=== PATIENT | female | born 1960 | race Caucasian/White ===

== ENCOUNTER 2025-07-27 13:51 | Outpatient (AMB) | payer OTHER, SELFPAY ==
--- NOTE | 2025-07-27 14:05 | MHC.OFFVIS ---
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 After that, she was noted to be emotional, easily weeping, and tremulous. This was noted by her coworkers and family. Sometime shaking appeared when she was signing something but usually at work she was able to do her job. There was no pain numbness or tingling. She also has chronic condition of shouting during sleep but not kicking. There was no change in bowel bladder pattern and she said her memory was okay. Shaking was noted in her head and sometime her whole body was shaking. She remembered that her mother used to have abnormal movement of her mouth. Her was with her and he denied any evidence of delusions or hallucinations or seizure-like episodes. [facility] Medical History (Updated 07/27/25 @ 14:22 by Kasia Flood MD) Tremor Review of Systems Narrative Constitutional:?No fever, chills, fatigue, weight loss, or night sweats. HEENT:?No headache, vision changes, hearing loss, nasal congestion, sore throat. Cardiovascular:?No chest pain, palpitations, orthopnea, PND, or leg swelling. Respiratory:?No cough, shortness of breath, wheezing, or hemoptysis. Gastrointestinal:?No nausea, vomiting, abdominal pain, diarrhea, or constipation. Genitourinary:?No dysuria, frequency, incontinence, or hematuria. Musculoskeletal:? Complain of joint pain Neurological:? Complain of tremor Psychiatric:? Complain of anxiety Endocrine:?No heat/cold intolerance, polydipsia, polyuria, or hair/skin changes. Hematologic/Lymphatic:?No easy bruising, bleeding, or lymphadenopathy. Integumentary (Skin):?No rash, lesions, itching, or color changes. Allergic/Immunologic:?No seasonal allergies, hives, or recurrent infections. Physical Exam Neuro Other: Mental Status: She is alert and awake with normal spontaneity of speech fluency comprehension and anxious affect. Cranial Nerves: CN II: Visual zhang full to confrontation, visual acuity intact. CN III, IV, : Pupils equal, round, reactive to light and accommodation. Extraocular movements are normal. CN V: Facial sensation is normal. CN VII: Facial movements symmetrical. CN VIII: Hearing intact to bedside conversation is normal. CN IX, X: Palate elevates symmetrically. CN XI: Shoulder shrug and head turn symmetrical. CN XII: Tongue midline without atrophy or fasciculations. Motor: Bulk and tone normal in all extremities. No significant muscle weakness in arms and legs. No drift. Reflexes: Deep tendon reflexes 2+ and symmetric. Plantar response down-going bilaterally. Coordination: [id number]-[id number]-mdfy with mild bilateral tremor Gait and Station: No obvious gait abnormality. No ataxia or instability. Extrapyramidal: Mild generalized tremor. Speech: Normal; no dysarthria or tremor. 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 She was here with complaints of shaking or tremor. Her examination revealed mild generalized tremor including her speech and emotional affect. She was advised to completely stopped drinking alcohol and have an MRI of brain done for review. Treatment of this type of syndrome, which could be multifactorial including contribution from chronic alcohol use, is symptomatic. Orders: Orders MR head/brain wo con Today F68.8 - 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, R25.1 - Tremor, unspecified Coding Level of Care Code New Pt Level 4 (45338) Diagnoses Tremor R25.1 Change in personality F68.8
== END 2025-07-27 14:26 | disposition home or self-care (01) ==
LOC: HO.HSM 13:51
PROVIDERS: PCP Internal Medicine; Visit Provider Psychiatry & Neurology Neurology
DX: R25.1 Tremor, unspecified (principal); F68.8 Other specified disorders of adult personality and behavior
CPT/HCPCS: 99204

== ENCOUNTER 2025-08-09 12:42 | Outpatient (AMB) | payer OTHER, SELFPAY ==
--- OUTSIDE RECORDS SUMMARY | 2025-08-09 09:00 | XMS_ITS | Encounter Summary ---
Author Organization [facility] Address [address] [place] [address] Care Team Providers Care R&D Engineer Name Role Phone Tita Hernandez MD Primary Care Provider [phone] Reason for Referral * Imaging (Routine) - Pending Review Specialty Diagnoses / Procedures Referred By Romulo shukla Referred To Contact Radiology Diagnoses Encounter for screening mammogram for malignant neoplasm of breast Procedures MG Mammo Digital Screening w Sudhakar bilat Elis Leyva DO [address] [place], [place] Phone: tel: fax: [address] [address] Phone: tel: Referral ID Status Reason Start Date Expiration Date V isits Requested Visits Authorized [id number] Pending Review 08/09/2025 08/09/2026 1 1 Reason for Visit * Reason Comments Gynecologic Exam * Consultation (Routine) - Authorized Specialty Diagnoses / Procedures Referred By Romulo shukla Referred To Contact Obstetrics and Gynecology Diagnoses Routine general medical examination at a health care facility Giancarlo Javier MD Phone: tel: fax: Elis Leyva DO [address] [place], [place] Phone: tel: fax: Referral ID Status Reason Start Date Expiration Date Visits Requested Visits Authorized [id number] Authorized Specialty Services Required 04/28/2025 04/28/2026 1 1 Encounter Details Date Type Department Care Team (Late st Contact Info) Description 08/09/2025 9:00 AM EST Office Visit Obstetrics and Gynecology - [place] [address] [place] [address], [place] [phone] Elis Leyva DO [address] [place], [place] Encounter for annual routine gynecological examination (Primary Dx); Screening for cervical cancer; ASCUS with positive high risk HPV cervical; Encounter for screening mammogram for malignant neoplasm of breast Social History Tobacco Use Types Packs/Day Years Used Date Smoking Tobacco: Light Smoker Cigarettes 0.3 51.1 Started: 1973 Smokeless Tobacco: Never Tobacco Cessation:Ready to Q uit: Not Asked; Counseling Given: Not Answered Alcohol Use Standard Drinks/Week Comments Yes 14 (1 standard drink = 0.6 oz pu re alcohol) Interpersonal Safety Answer Date Record ed Physical Abuse Unrecognized value 05/14/2025 Verbal Abuse Unrecognized value 05/14/2025 Comments No Sex and Gender Information Value Date Recorded Sex Assigned at Female 01/18/2025 8:31 AM EDT Legal Sex Female 8:40 PM EST Gender Identity Female 01/18/2025 8:31 AM EDT Sexual Orientation Straight 01/18/2025 8: 31 AM EDT documented as of this encounter Last Filed Vital Signs Vital Sign Reading Time Taken Comments Blood Pressure 120/74 08/09/2025 9:09 AM EST Pulse 89 08/09/2025 9:09 AM EST Temperature - - Respiratory Rate - - Oxygen Saturation - - Inhaled Oxygen Concentration - - Weight 63.9 kg (140 lb 12.8 oz) 08/09/2025 9:09 AM EST Height - - Body Mass Index 24.94 05/14/2025 10:15 AM EDT documented in this encounter Progress Notes * Elis Leyva DO - 08/09/2025 9:00 AM EST IDENTIFIER:Eugenie Aldana is a 65 y.o. . HPI: Eugenie has been in state of Good health since her last exam. No LMP recorded. Patient is postmenopausal.. She reports absent menses due to menopause. She has no concerns. 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 ENDOCRINE: No cold or heat intolerance NEURO: No persistent headache, syncope, seizures, weakness or numbness PAST MEDICAL HISTORY: Problem List[1] PAST SURGICAL HISTORY: Surgical History[2] PAST LODGING HOUSE KEEPER HX: No LMP recorded. Patient is postmenopausal. Last Pap Smear: 2023 nml cytology +HPV 16 Last Mammogram: 10/2024 - nml POBHX: OB History Para Term AB Living 1 1 1 0 0 1 SAB IAB Ectopic Multiple Live Births 0 0 0 1 # Outcome Date GA Lbr Tommie/2nd Weight Sex Type Anes PTL Lv 1 Term 07/12/90 Vag-Spont GLADYS SOCIAL HISTORY: Social History Tobacco Use Smoking status: Light Smoker Current packs/day: 0.25 Average packs/day: 0.3 packs/day for 51.1 years (12.8 ttl pk-yrs) Types: Cigarettes Start date: 1974 Smokeless tobacco: Never Substance Use Topics Alcohol use: Yes Alcohol/week: 14.0 standard drinks of alcohol Types: 14 Standard drinks or equivalent per week FAMILY HISTORY: Family History[3] ACTIVE MEDICATIONS: Medications Taking[4] Contraception: NA ALLERGIES: Current Allergies[5] The patient's medical, surgical, 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 Her medications and allergies were also reviewed. PHYSICAL EXAM: Visit Vitals BP 120/74 Pulse 89 Wt 63.9 kg (140 lb 12.8 oz) BMI 24.94 kg/m?? OB Status Postmenopausal Smoking Status Light Smoker BSA 1.67 m?? APPEARANCE: Alert and in no acute distress BREAST (FEMALE): Symmetrical, normal consistency without masses, adenopathy or tenderness LYMPH NODES: grossly normal ABDOMEN: soft, non-tender, without organomegaly or palpable masses A bivalve speculum was used for a portion of the following exam: PELVIC EXAM: exam chaperoned by nurse, external genitalia normal, vaginal mucosa normal with atrophy, normal cervix without lesions, bimanual nontender with no appreciable masses EXTREMITIES: Extremities warm and well perfused without clubbing, cyanosis, or edema NEURO: Awake, alert and oriented x 3 SKIN: Skin color, texture, turgor normal. No rashes or lesions. IMPRESSION: 1. Encounter for annual routine gynecological examination 2. Screening for cervical cancer PLAN: During the visit, the following areas of concern were addressed: Healthy Diet, Regular Exercise, Importance of Adequate Vitamin D and Calcium Intake for Bone Health, Breast Cancer Screening Guidelines Reviewed, Cervical Cancer Screening Guidelines Reviewed, and Colon Cancer Screening Guidelines Reviewed Labs ordered/performed: Pap Smear Imaging ordered/performed: None Elis Leyva DO [1] Patient Active Problem List Diagnosis Adhesive capsulitis Anxiety ASCUS with positive high risk HPV cervical Bloody discharge from left nipple Decreased appetite Facet arthropathy, cervical Hypertension Lumbar spondylolysis Lung nodules Mass of thigh Polymyalgia rheumatica (CMS/HCC V24) PSVT (paroxysmal supraventricular tachycardia) (CMS/HCC V24) Reflux esophagitis Resting tremor Spondylolisthesis of lumbar region Tubular adenoma of colon Vision changes Vitamin D deficiency Wheezing Hypercholesterolemia [2] Past Surgical History: Procedure Laterality Date BREAST BIOPSY PROCEDURE: BX BREAST; PERC NEEDLE CORE W/IMAG GUID; COMMENT: bx on lt & rt-benign BREAST LUMPECTOMY PROCEDURE: ---- BREAST LUMP BIOPSY ----; COMMENT: benign breast mass x2 in past BREAST SURGERY Left 02/2014 PROCEDURE: [place] UNLISTED PROCEDURE BREAST; COMMENT: ductagram than surgrey BREAST SURGERY Right PROCEDURE: [place] UNLISTED PROCEDURE BREAST; COMMENT: cyst removed COLONOSCOPY 11/12/2011 PROCEDURE: HISTORICAL COLONOSCOPY; COMMENT: 5mm tubular adenoma of the cecum. COLONOSCOPY 07/06/2016 PROCEDURE: HISTORICAL COLONOSCOPY; COMMENT: 5 mm cecal polyp: serrated adenoma. MASS EXCISION 10/2014 PROCEDURE: HISTORICAL EXCISION OF MASS; COMMENT: LLE mass (intramuscular lipoma) SHOULDER SURGERY 06/16/2018 PROCEDURE: HISTORICAL SHOULDER SURGERY; COMMENT: right shoulder arthroscopy TONSILLECTOMY ADENOIDECTOMY, BILATERAL MYRINGOTOMY AND TUBES PROCEDURE: [place] TONSILLECTOMY & ADENOIDECTOMY <AGE 13 UPPER GASTROINTESTINAL ENDOSCOPY 05/04/2016 PROCEDURE: [place] UPPER GI ENDOSCOPY PERFORMED; COMMENT: Moderate erosive esophagitis while on treatment with famotidine. BX: esophagitis. [3] Family History Problem Relation Name Age of Onset Hypertension Father Other (Other: PMR) Father Hypertension Mother Hypertension Brother Hypertension Paternal Grandfather CAD Hypertension Paternal Grandmother CAD Hypertension Maternal Grandfather CAD Hypertension Maternal Grandmother CAD Ovarian cancer Aunt Colon cancer Neg Hx Breast cancer Neg Hx [4] Outpatient Medications Marked as Taking for the 08/09/25 encounter (Office Visit) with Elis Leyva, DO Medication Sig Dispense Refill albuterol HFA (PROAIR HFA ; PROVENTIL HFA ; VENTOLIN HFA) 90 mcg/actuation inhaler INHALE 2 PUFFS BY MOUTH EVERY 4 (FOUR) HOURS IF NEEDED FOR WHEEZING OR SHORTNESS OF BREATH. 6.7 each 1 atorvastatin (LIPITOR) 10 mg tablet Take 1 tablet (10 mg total) by mouth 1 (one) time each day. 90 tablet 0 cholecalciferol (VITAMIN D-3) 50 mcg (2,000 unit) tablet Take 1 tablet (2,000 Units total) by mouthevery other day. 45 tablet 3 clobetasoL (TEMOVATE) 0.05 % cream Apply small amount BID x 2- 3 weeks then stop for 1 week and repeat if necessary. estradioL (ESTRACE) 0.01 % (0.1 mg/gram) vaginal cream Pea sized amount vaginally twice a week. FLUoxetine (PROzac) 20 mg capsule TAKE 2 CAPSULES (40 MG TOTAL) BY MOUTH EVERY DAY 180 capsule 1 hydroCHLOROthiazide (MICROZIDE) 12.5 mg capsule TAKE 1 CAPSULE BY MOUTH 1 TIME EACH DAY. 90 capsule1 lisinopriL (PRINIVIL,ZESTRIL) 20 mg tablet Take 1 tablet (20 mg total) by mouth 1 (one) time each day. 90 each 3 LORazepam (ATIVAN) 0.5 mg tablet TAKE 2 TABLETS BY MOUTH 1 (ONE) TIME EACH DAY IF NEEDED FOR ANXIETY FOR UP TO 28 DAYS. MAX DAILY AMOUNT: 1 MG 56 tablet 0 mometasone (ELOCON) 0.1 % ointment APPLY HALF A FINGERTIP AMOUNT TO THE VULVA NIGHTLY X4 WEEKS THENTWICE WEEKLY THEREAFTER 15 g 3 omeprazole (PriLOSEC) [address] capsule TAKE 1 CAPSULE BY MOUTH EVERY DAY 90 capsule 1 umeclidinium-vilanteroL (Anoro Ellipta) 62.5-25 mcg/actuation inhaler Inhale 1 puff by mouth 1 (one) time each day. 1 each 2 [5] Allergies Allergen Reactions Hydrocodone-Acetaminophen Itching Epinephrine Other Paroxysmal SVT documented in this encounter Plan of Treatment Upcoming Encounters Date Type Department Care Team (Late st Contact Info) Description 10/01/2025 9:20 AM EST Consult Endocrinology - [place] [address] [place] [address] Ambrosio Betancourt MD [address] [place] [address] Pending Results Name Type Priority Associated Diagnoses Date /Time Pap smear Pathology and Cytology Routine Screening for cervical cancer 08/09/2025 2:39 PM EST Scheduled Orders Name Type Priority Associated Diagnoses Orde r Schedule MG Mammo Digital Screening w Sudhakar bilat Imaging Routine Encounter for screening mammogram for malignant neoplasm of breast Expected: 10/18/2025, Expires: 08/09/2026 documented as of this encounter Visit Diagnoses Diagnosis Encounter for annual routine gynecological examination- Primary Screening for cervical cancer Screening for malignant neoplasm of the cervix ASCUS with positive high risk HPV cervical Encounter for screening mammogram for malignant neoplasm of breast documented in this encounter Orders Outpatient Referral Count Last Ordered Date Fir st Ordered Date AMB REFERRAL TO OB-LODGING HOUSE KEEPER 1 08/09/2025 documented in this encounter Care Teams R&D Engineer Relationship Specialty Start Date End Date Tita Hernandez MD [address] [place] [address] PCP - General Internal Medicine 06/02/25 documented as of this encounter
--- NOTE | 2025-08-09 12:58 | A.OFFVIS_ITS ---
Intake Visit Reasons: after MRI HPI Comments Details: 65 years old woman with chronic anxiety and depression and moderate alcohol drinking became more stressed about a year ago and her parents . She was here with complaints of shaking or tremor. Her examination revealed mild generalized tremor including her speech and emotional affect. She was advised to completely stopped drinking alcohol and have an MRI of brain done for review. She is presenting for a follow-up visit to review brain scan results. The patient reports experiencing a little bit of shaking and unsteadiness. The brain MRI findings were reviewed and found to be normal and age-appropriate. A general discussion was held regarding alcohol-induced brain problems, noting that nearly half of the effects can be reversed after one year of abstinence. [facility] Medical History (Updated 08/09/25 @ 13:08 by Kasia Flood MD) Tremor Review of Systems Narrative - Neurological: Reports a little bit of shaking and unsteadiness. - Psychiatric: Reports occasional anxiety. Physical Exam Neuro Other: Mental Status: Alert and oriented to person, place, and time. Normal attention. Normal spontaneous speech, fluency, and comprehension. Cranial Nerves: CN II: Visual zhang full to confrontation, visual acuity intact. CN III, IV, : Pupils equal, round, reactive to light and accommodation. Extraocular movements are normal. CN V: Facial sensation is normal. CN VII: Facial movements symmetrical. CN VIII: Hearing intact to bedside conversation is normal. CN IX, X: Palate elevates symmetrically. CN XI: Shoulder shrug and head turn symmetrical. CN XII: Tongue midline without atrophy or fasciculations. Extrapyramidal: Full facial expressions and blinking. No rigidity. Movements are appropriate with no tremor or abnormality. Speech: Normal; no dysarthria or tremor. 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 We discussed the symptoms of mild shaking and unsteadiness, and I reassured the patient that this is not related to Parkinson's disease. I advised the patient to ignore these symptoms, which are likely secondary to anxiety. I explained that while medication is an option for such symptoms, I do not recommend it, and the patient agreed. We discussed general brain health, including the potential for recovery from alcohol-induced damage and the importance of proactive care. I informed the patient that no follow-up appointment is necessary. 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
--- OUTSIDE RECORDS SUMMARY | 2025-08-09 16:20 | XMS_ITS | Encounter Summary ---
Author Organization [facility] Address [address] [place] [address] Care Team Providers Care Associate Professor Of Surgery Name Role Phone Tita Hernandez MD Primary Care Provider [phone] Encounter Details Date Type Department Care Team ([facility] st Contact Info) Description 06/14/2025 Results Follow-Up Gastroenterology - [place] [address] [facility] [address] [place] [phone] Ridge Richards MD [address] [place] [address] Social History Tobacco Use Types Packs/Day Years Used Date Smoking Tobacco: Light Smoker Cigarettes 0.3 51.1 Started: 1973 Smokeless Tobacco: Never Alcohol Use Standard Drinks/Week Comments Yes 14 [...] AM EDT documented as of this encounter Progress Notes * Ridge Richards MD - 06/14/2025 8:34 PM EDT The polyp(s) that were removed during your colonoscopy were precancerous, but benign. Fortunately, we removed them and therefore, they will not cause any more problems in the future. Based on the number, the size, and the features of the polyp(s) removed, I recommend a follow-up colonoscopy in 3 years. Before, the three years are due, we will send you a reminder in the mail asking you to contact our office to have the colonoscopy scheduled. I would like to personally thank you for allowing us to take care of you. Please don't hesitate to call us for any questions or concerns. Regards, Malaika Richards MD Board Certified Gastroenterology and Internal Medicine Transplant Hepatology [facility] documented in this encounter Plan of Treatment Upcoming Encounters Date Type Department Care Team (Late st Contact Info) Description 10/01/2025 9:20 AM EST Consult Endocrinology - [place] [address], [place] [phone] Ambrosio Betancourt MD [address] [place], [place] documented as of this encounter Visit Diagnoses Not on filedocumented in this encounter Care Teams Associate Professor Of Surgery Relationship Specialty Start Date End Date Tita Hernandez MD [address] [place] [address] PCP - General Internal Medicine 06/02/25 documented as of this encounter
--- OUTSIDE RECORDS SUMMARY | 2025-08-09 16:20 | XMS_ITS ---
Author Name [facility] Organization Unknown Care Team Organization Name Specialty Phone Email Start Date End Da te [facility] Tremaine Garibay Primary Care 05/16/2023 04/27/20 [facility] Gina Porter MINIATURE SET CONSTRUCTOR Primary Care 01/14/2023 04/27/2024 [facility] NULL Primary Care 07/17/2022 04/27/2024
--- OUTSIDE RECORDS SUMMARY | 2025-08-09 16:20 | XMS_ITS | Clinical Summary ---
Author Organization [facility] Address [address] [place] [address] Care Team Providers Care Stripper And Taper Name Role Phone Giancarlo Javier MD Primary Care Provider [phone] Allergies Active Allergy Reactions Criticality Noted Date Comments Hydrocodone-Acetaminophen 05/09/2018 Medications Medication Sig Dispensed Refills Start Date End Date Status FLUoxetine (PROZAC) 20 MG capsule Take 20 mg by mouth 2 (two) times a day. 1 02/17/2018 Active LORazepam (ATIVAN) 0.5 MG tablet Take 1 mg by mouth daily. 0 03/21/2018 Active omeprazole (PRILOSEC) 20 MG capsule Take 20 mg by mouth daily. 1 02/04/2018 Active lisinopril (PRINIVIL,ZESTRIL) tablet 10 mg Take 10 mg by mouth daily. 0 Active PROAIR HFA 108 (90 Base) MCG/ACT inhaler INHALE 2 PUFFS INTO THE LUNGS EVERY 6 HOURS NEEDED FOR COUGH OR WHEEZING. 5 08/19/2018 Active ANORO ELLIPTA 62.5-25 MCG/INH AEPB INHALE 1PUFF INTO THE LUNGS DAILY 5 08/19/2018 Active nicotine (NICODERM CQ) 21 MG/24HR Place 1 patch onto the skin. 0 04/11/2018 Active predniSONE (DELTASONE) 5 mg tablet Take by mouth. 0 Active Active Problems Problem Noted Date Diagnosed Date Acute pain of right shoulder 08/26/2018 Postoperative visit 07/03/2018 Family History Medical History Relation Name Comments Heart disease Father Hypertension Father Hypertension Mother Relation Name Status Comments Father Mother Social History Tobacco Use Types Packs/Day Years Used Date Smoking Tobacco: Never Assessed Sex and Gender Information Value Date Recorded Sex Assigned at Not on file Gender Identity Not on file Sexual Orientation Not on file Last Filed Vital Signs Vital Sign Reading Time Taken Comments Blood Pressure - - Pulse - - Temperature - - Respiratory Rate - - Oxygen Saturation - - Inhaled Oxygen Concentration - - Weight 68.9 kg (152 lb) 05/04/2019 12:43 PM EDT Height 160 cm (5' 3 ) 05/04/2019 12:43 PM EDT Body Mass Index 26.93 05/04/2019 12:43 PM EDT Plan of Treatment Health Maintenance Due Date Last Done Comments Hepatitis C Screening 1961 COVID-19 Vaccine (#1) 1961 Depression Screening 1973 BMI Counseling 1979 Preventative Health Evaluation 1979 Cervical Cancer Screening (Pap Smear) 1982 Colon Cancer Screening (Colonoscopy) 2006 Breast Cancer Screening (Mammogram) 2011 Shingrix-Zoster Vaccine (1 of 2) 2011 Pneumococcal Vaccine (2 of 2 - PCV) 11/11/2018 11/11/2017 Pneumococcal Vaccine (2 of 2 - PCV) 11/11/2018 11/11/2017 DTap / Tdap / Td (2 - Td or Tdap) 01/23/2023 01/23/2013 Influenza Vaccine (#1) 2025 9, 06/05/2018, 06/13/2017, Additional history exists RSV Adult > 60+ Yrs or (1 - 1-dose 75+ series) 2036 Hepatitis B Vaccines Aged Out No long er eligible based on patient's age to complete this topic RSV Ped < 20 months Aged Out No longe r eligible based on patient's age to complete this topic Care Teams Stripper And Taper Relationship Specialty Start Date End Date Giancarlo Javier MD [address] [place] [address] PCP - General Internal Medicine 04/11/18
--- OUTSIDE RECORDS SUMMARY | 2025-08-09 16:20 | XMS_ITS | Clinical Summary ---
Author Organization [place] [address] Ashley jorgensen [facility] Building Address [address], [place] Phone Care Team Providers Care Public Bath Attendant Name Role Phone Tita Hernandez MD Primary Care Provider Allergies Active Allergy Reactions Criticality Noted Date Comments Epinephrine Other 03/09/2021 Paroxysmal SVT Hydrocodone-Acetaminophen Itching High 02/20/2012 Medications clobetasoL (TEMOVATE) 0.05 % cream Apply small amount BID x 2- 3 weeks then stop for 1 week and repeat if necessary. 12/19/19 23 Active estradioL (ESTRACE) 0.01 % (0.1 mg/gram) vaginal cream Pea sized amount vaginally twice a week. 02/26/20 24 Active albuterol HFA (PROAIR HFA ; PROVENTIL HFA ; VENTOLIN HFA) 90 mcg/actuation inhaler INHALE 2 PUFFS BY MOUTH EVERY 4 (FOUR) HOURS IF NEEDED FOR WHEEZING OR SHORTNESS OF BREATH. 6.7 each 1 01/01/20 25 Active umeclidinium-vi lanteroL (Anoro Ellipta) 62.5-25 mcg/actuation inhaler Inhale 1 puff by mouth 1 (one) time each day. 1 each 2 02/03/20 25 Active FLUoxetine (PROzac) 20 mg capsule TAKE 2 CAPSULES (40 MG TOTAL) BY MOUTH EVERY DAY 180 capsule 1 02/24/20 25 Active hydroCHLOROthia zide (MICROZIDE) 12.5 mg capsule TAKE 1 CAPSULE BY MOUTH 1 TIME EACH DAY. 90 capsule 1 04/12/20 25 Active cholecalciferol (VITAMIN D-3) 50 mcg (2,000 unit) tablet Take 1 tablet (2,000 Units total) by mouth every other day. 45 tablet 3 04/27/20 25 Active LORazepam (ATIVAN) 0.5 mg tablet TAKE 2 TABLETS BY MOUTH 1 (ONE) TIME EACH DAY IF NEEDED FOR ANXIETY FOR UP TO 28 DAYS. MAX DAILY AMOUNT: 1 MG 56 tablet 05/05/20 25 Active lisinopriL (PRINIVIL,ZESTR IL) 20 mg tabletIndicatio ns:Hypertension , unspecified type Take 1 tablet (20 mg total) by mouth 1 (one) time each day. 90 each 3 05/12/20 25 026 Active mometasone (ELOCON) 0.1 % ointment APPLY HALF A FINGERTIP AMOUNT TO THE VULVA NIGHTLY X4 WEEKS THEN TWICE WEEKLY THEREAFTER 15 g 3 05/28/20 25 Active omeprazole (PriLOSEC) [address] capsule TAKE 1 CAPSULE BY MOUTH EVERY DAY 90 capsule 1 06/02/20 25 Active atorvastatin (LIPITOR) 10 mg tablet Take 1 tablet (10 mg total) by mouth 1 (one) time each day. 90 tablet 07/14/20 25 Active atorvastatin (LIPITOR) 10 mg tablet TAKE 1 TABLET BY MOUTH EVERY DAY 90 tablet 1 12/02/19 25 025 Discontinued Active Problems Problem Noted Date Diagnosed Date Hypercholesterolemia 02/02/2025 Assessment & Plan (02/02/2025 3:30 PM EDT): Follow low-cholesterol diet. Continue atorvastatin. Lumbar spondylolysis 01/11/2023 Spondylolisthesis of lumbar region 01/11/2023 Overview (07/20/2024): Last Assessment & Plan: Patient describes significant constant low back pain, left leg numbness and when walking left posterior leg pain. She notes weakness lifting the left foot, cannot lift the toes. She states both legs feel heavy. Otherwise denies right leg symptoms. This started about 6 weeks ago after she had a fall when she tripped on the dog and landed into a table, had significant bruising on the back and buttock. She really does not report having back issues prior to the fall. She states prior to this fall she had infrequent back pain that was generally mild, about 10 years ago she had physical therapy and a cortisone injection that helped her low back pain at that time. She denies bowel bladder incontinence. She tried a prednisone taper 2 weeks ago without improvement. Patient had MRI lumbar spine 01/03/2023 at [facility] that shows grade 2 spondylolisthesis L5-S1, bilateral neuroforaminal stenosis, pars defects noted at this level. I compared the MRI to prior studies 2019 and 2012, overall stable since 2019, slightly progressed since 2012. I reviewed her current MRI images on the computer in detail with the patient and her . Ms. Erazo will go for lumbar spine flexion-extension x-rays for her L5-S1 spondylolisthesis, pars defects, check for instability. I will review her MRI and x-rays with Dr. Lyons and call patient with an update. We had a discussion regarding smoking cessation, she would have to be nicotine free if Dr. Lyons recommends fusion surgery. She states she did quit for a short time many years ago. All questions answered on today's visit. She will call with any concerns or questions. PSVT (paroxysmal supraventri cular tachycardia) ([facility] V24) 05/08/2021 Overview (07/20/2024): Last Assessment & Plan: Sarika had a single occurrence of supraventricular tachycardia. Given the clinical characteristics this could be either an atrial tachycardia or AV papito reentry tachycardia. I reemphasized that the first step if the tachycardia recurs would be physical maneuvers which include Valsalva and drinking a glass of water. She can also keep metoprolol 25 mg to be taken for sustained palpitations lasting 5 minutes. If this is a succeed in terminating the tachycardia a second dose can be taken after 15 minutes this and she would need to be evaluated emergency department most likely. Her baseline EKG and echocardiogram are normal. Given that this episode occurred in isolation,, I do not believe she needs routine clinical follow-up with cardiology. I am happy to see her on an as-needed basis. Assessment & Plan (11/18/2024 6:17 PM EDT): She uses metoprolol only as needed. Stable now. Tubular adenoma of colon 05/19/2020 Overview (07/20/2024): 3 removed 05/12/2020. Repeat 5 years Assessment & Plan (02/02/2025 3:30 PM EDT): Referral to special weapons and tactics officer placed to schedule her for screening colonoscopy for history of colon polyps. Orders: Ambulatory referral to Gastroenterology; Future Adhesive capsulitis 05/12/2018 Overview (07/20/2024): Rheum (05/09/18): seen by Dr Cristina. Pt has failed non-operative treatment. Discussed surgical options and patient agreed. Facet arthropathy, cervical 03/26/2018 Vitamin D deficiency 10/09/2017 Assessment & Plan (02/02/2025 3:30 PM EDT): I changed her vitamin D prescription to vitamin D 2000 units every other day. Will monitor vitamin D levels. Orders: Vitamin D 25 hydroxy; Future Vision changes 08/26/2017 Decreased appetite 07/24/2017 Polymyalgia rheumatica (CMS/HCC V24) 07/24/2017 Resting tremor 07/24/2017 ASCUS with positive high risk HPV cervical 10/19 Overview (07/20/2024): HPV ; negative colpo 2014 ASCUS HPV 2016; colpo 10/19/16 Reflux esophagitis 05/04/2016 Overview (07/20/2024): Upper GI endoscopy and biopsies 05/04/2016. Mass of thigh 08/19/2014 Bloody discharge from left nipple 03/08/2014 Lung nodules 12/22/2012 Overview (07/20/2024): Low-dose CT (09/15/17): Mild emphysematous disease, evidence of previous granulomatosis infection and nonspecific pulmonary nodules, essentially similar by CT analysis when compared to 08/22/2017. Stable CT as of 2013 Hypertension 02/04/2009 Overview (07/20/2024): Last Assessment & Plan: Blood pressure slightly elevated today. I will reassess at her next office visit to consider if we should adjust her antihypertensive therapy. Assessment & Plan (02/02/2025 3:30 PM EDT): Patient will follow low-sodium diet. Blood pressure stable. Continue current regimen of hydrochlorothiazide, lisinopril. She uses metoprolol only as needed when she has palpitation and has not had the need to use it. Orders: Basic metabolic panel; Future Assessment & Plan (11/18/2024 6:17 PM EDT): Follow low-sodium diet. Continue lisinopril, hydrochlorothiazide. Anxiety 05/05/2008 Assessment & Plan (02/02/2025 3:30 PM EDT): Continue fluoxetine 40 mg daily, lorazepam. No changes to current controlled substance contract. Assessment & Plan (11/18/2024 6:17 PM EDT): Emotional counseling done today. She does not want any changes in her dosages. Continue fluoxetine, lorazepam. I have advised her to seek out to the therapist which she agrees to. Referral to be orders placed. Orders: Ambulatory referral to Behavioral Health; Future Wheezing 05/05/2008 Assessment & Plan (02/02/2025 3:30 PM EDT): Continue Anoro Ellipta, albuterol. Will get pulmonology on board on later time as patient does not want to see them at this moment. 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 Discharge Disposition: Home or Self Care 06/14/2025 Results Follow-Up Gastroenterology - [place] [address] [facility] [address] [facility] [address] [place] [phone] Ridge Richards MD 06/11/2025 11:15 AM EDT [facility] [address] [place] [address] Sravanthi Alan NP Immunization due (Primary Dx) 05/21/2025 6:00 PM EDT Office Visit Walk-In Clinic - [address] [phone] Kaz Quinones NP Left elbow pain (Primary Dx); Acute pain of left shoulder; Elbow strain, left, initial encounter 05/21/2025 8:39 AM EDT - 05/21/2025 11:59 PM EDT [facility] [address] [place] [address] Discharge Disposition: Home or Self Care 05/21/2025 8:39 AM EDT - 05/21/2025 11:59 PM EDT [facility] [address] [place] [address] Discharge Disposition: Home or Self Care 05/17/2025 8:15 AM EDT [facility] [address] [phone] Leigh Watson NP Hypertension, unspecified type (Primary Dx) 05/14/2025 11:13 AM EDT Anesthesia Event [facility] Endoscopy [address] [place] [phone] Alejandro Finney MD 05/14/2025 9:23 AM EDT - 05/14/2025 11:59 PM EDT Hospital Encounter [facility] Endoscopy [address] [place] [phone] Ridge Richards MD Dasilva, MD Babatunde Mark Tyanna R, CRNA Hx of colonic polyps Discharge Disposition: Home or Self Care from Last 3 Months Immunizations Immunization Administration Dates Next Due H1N1 Inj Preservative Free 07/04/2009 Influenza Quadravalent, MDCK , 0.5ml, preservative free (Flucelvax) 6mo and older 07/15/2019 Influenza Quadravalent, MDCK , 0.5ml, with preservative (Flucelvax) 6mo and older 07/25/2023 Influenza trivalent, 0.5mL, preservative free (Fluarix; FluLaval; Fluzone) ages 6mo and older (Afluria) 3 years and older 06/13/2021,06/21/2020,06/05/2018,06/13,06/28/2016,06/11/2014,06/02/2013 ,05/30/2012,08/09/2011,07/06/2010,05/10,06/22/2008 Influenza trivalent, MDCK, 0 .5mL, preservative free (Flucelvax) 6mo and older 06/11/2025 Moderna SARS-CoV-2 COVID-19, mRNA, LNP-S, preservative free 10/13/2020,09/15/2020 PPD Test 12/19/2012 Pneumococcal polysaccharide 23 valent (Pneumovax 23) 2yo and older 11/11/2017 Td Tetanus diptheria (Tdvax) 7yo and older 03/30/2023,06/18/2005 Td Tetanus diptheria, preser vative free (Tenivac) 7yo and older 03/30/2023 Tdap Tetanus diptheria acell ular pertussis (Boostrix; Adacel) 7yo and older 01/23/2013 Surgical History Surgery Date Site/Laterality Comments BREAST LUMPECTOMY PROCEDURE: ---- BREAST LUMP BIOPSY ----; COMMENT: benign breast mass x2 in past TONSILLECTOMY ADENOIDECTOMY, BILATERAL MYRINGOTOMY AND TUBES PROCEDURE: MA TONSILLECTOMY & ADENOIDECTOMY <AGE 12 COLONOSCOPY 11/12/2011 PROCEDURE: HISTORICAL COLONOSCOPY; COMMENT: 5mm tubular adenoma of the cecum. MASS EXCISION 10/2014 PROCEDURE: HISTORICAL EXCISION OF MASS; COMMENT: LLE mass (intramuscular lipoma) UPPER GASTROINTESTINAL ENDOSCOPY 05/04/2016 PROCEDURE: MA UPPER GI ENDOSCOPY PERFORMED; COMMENT: Moderate erosive esophagitis while on treatment with famotidine. BX: esophagitis. COLONOSCOPY 07/06/2016 PROCEDURE: HISTORICAL COLONOSCOPY; COMMENT: 5 mm cecal polyp: serrated adenoma. BREAST SURGERY 02/2014 Left PROCEDURE: MA UNLISTED PROCEDURE BREAST; COMMENT: ductagram than surgrey BREAST SURGERY Right PROCEDURE: MA UNLISTED PROCEDURE BREAST; COMMENT: cyst removed SHOULDER SURGERY 06/16/2018 PROCEDURE: HISTORICAL SHOULDER SURGERY; COMMENT: right shoulder arthroscopy BREAST BIOPSY PROCEDURE: BX BREAST; PERC NEEDLE CORE W/IMAG GUID; COMMENT: bx on lt & rt-benign Medical History Medical History Date Comments Irritable bowel syndrome DX:Irri table bowel syndrome Depressive disorder, not els ewhere classified DX:Depressive disorder, not elsewhere classified Endometriosis of uterus DX:Endom etriosis of uterus Tobacco abuse 05/05/2008 DX:Tobacco abuse Wheezing 05/05/2008 DX:Wheezing Unspecified asthma(493.90) DX:Un specified asthma(493.90) Anxiety 05/05/2008 DX:Anxiety Hypertension 02/04/09 DX:Hypertension H/O benign neoplasm of colon 11/14/2011 DX: H/O benign neoplasm of colon; COMMENT: Colonoscopy 11/12/2011, 5 mm tubular adenoma of the cecum. Next colonoscopy indicated 2016. Reflux esophagitis 05/04/2016 DX:Reflux eso phagitis; COMMENT: Upper GI endoscopy and biopsies 05/04/2016. Abnormal cytological finding in specimen from cervix 12/2013 DX:Abnormal cytological find ing in specimen from cervix; COMMENT: pos HPV, colpo neg Vitamin D deficiency 10/09/2017 DX:Vitamin D deficiency Tubular adenoma of colon 05/19/2020 DX:Tubu lar adenoma of colon; COMMENT: 3 removed 05/12/2020. Repeat 5 years Tubular adenoma of colon 05/19/2020 DX:Tubu lar adenoma of colon PSVT (paroxysmal supraventri cular tachycardia) (CMS/HCC V24) 05/08/2021 DX:PSVT (paroxysmal supraventricular tachycardia) (HCC) Polymyalgia rheumatica (CMS/HCC V24) 07/24/2017 DX:Polymyalgia rheumatica (HCC) Hypercholesterolemia 02/02/2025 Family History Medical History Relation Name Comments Ovarian cancer Aunt Hypertension Brother Hypertension Father Other: PMR Father Hypertension Maternal Grandfather CAD Hypertension Maternal Grandmother CAD Hypertension Mother Hypertension Paternal Grandfather CAD Hypertension Paternal Grandmother CAD Breast cancer Neg Hx Colon cancer Neg Hx Relation Name Status Comments Aunt Alive Brother Alive Father Alive Maternal Grandfather Maternal Grandmother Mother Alive Paternal Grandfather Paternal Grandmother Social History Tobacco Use Types Packs/Day Years [...] Orientation Straight 01/18/2025 8: 31 AM EDT Obstetrics History Para Term AB IAB SAB Ectopic Multiple Livin g Live Births 1 1 1 0 0 1 1 Date Outcome GA Total Labor Labor/2nd/3rd Weight Sex Type Anes PTL Elil A1 A5 Name Clin 1989 Term Vag-S pont Living Last Filed Vital Signs Vital Sign Reading Time Taken Comments Blood Pressure 120/74 08/09/2025 9:09 AM EST Pulse 89 08/09/2025 9:09 AM EST Temperature 36.5 C (97.7 F) 05/21/2025 8:41 AM EDT Respiratory Rate 20 05/14/2025 11:5 6 AM EDT Oxygen Saturation 97% 05/21/2025 8:41 AM EDT Inhaled Oxygen Concentration - - Weight 63.9 kg (140 lb 12.8 oz) 08/09/2025 9:09 AM EST Height 160 cm (5' 3 ) 05/14/2025 10:15 AM EDT Body Mass Index 24.94 05/14/2025 10:15 AM EDT Plan of Treatment Upcoming Encounters Date Type Department Care Team (Late st Contact Info) Description 10/01/2025 9:20 AM EST Consult Endocrinology - [place] [address] [place] [phone] Ambrosio Betancourt MD [address] [place] [address] Health Maintenance Due Date Last Done Comments Zoster Vaccines (1 of 2) 2011 Pneumococcal Vaccine: 50+ Years (2 of 2 - PCV) 11/11/2018 11/11/2017 HIV Screening 10/10/2019 Social Influencers of Health Screening 10/10/2019 Depression Screening 09/09/2024 COVID-19 Vaccine ( season) 2025 08/04/2021, 10/13/2020, 09/15/2020 Hypertension/CHF/CAD Annual BMP Blood Test 04/30/2026 04/30/2025, 03/24/2025, 06/13/2024 Breast Cancer Screening 10/14/2026 10/14/19 25, 06/14/2023, 11/20/2021, Additional history exists Colorectal Cancer Screening: Colonoscopy 05/14/2028 05/14/2025, 05/12/2020, 07/06/2016 Cervical Cancer Screening: HPV 10/09/2028 10/09/2023 Cholesterol Screening (Lipid Panel) 10/19/2029 10/19/2024, 06/13/2024, 06/13/2024 DTaP,Tdap,and Td Vaccines (5 - Td or Tdap) 03/30/2033 03/30/2023, 03/30/2023, 01/23/2013, Additional history exists RSV Immunization Adult Patients (1 - 1-dose 75+ series) 2036 Hepatitis C Screening Completed 01/23/2013 Influenza Vaccine Completed 06/11/2025, , 06/13/2021, Additional history exists HIB Vaccines Aged Out No longer eligi ble based on patient's age to complete this topic HPV Vaccines Aged Out No longer eligi ble based on patient's age to complete this topic Hepatitis A Vaccines Aged Out No long er eligible based on patient's age to complete this topic Hepatitis B Vaccines Aged Out No long er eligible based on patient's age to complete this topic IPV Vaccines Aged Out No longer eligi ble based on patient's age to complete this topic MMR Vaccines Aged Out No longer eligi ble based on patient's age to complete this topic Meningococcal ACWY Vaccine Aged Out N o longer eligible based on patient's age to complete this topic Meningococcal B Vaccine Aged Out No l onger eligible based on patient's age to complete this topic RSV Immunization Patients Under 20 months Aged Out No longer eligible based on patient's age to complete this topic Varicella Vaccines Aged Out No longer eligible based on patient's age to complete this topic Procedures Procedure Name Priority Date/Time Associated Diagnosis Comments MR BRAIN WO CONTRAST Routine 07/30/2025 4:22 PM EST Tremor, unspecified 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 XR ELBOW 3+ VIEWS LEFT STAT 8:51 AM EDT Left elbow pain XR SHOULDER 2+ VIEWS LEFT STAT 05/21/2025 8:51 AM EDT Left elbow pain Acute pain of left shoulder COLONOSCOPY Routine 05/14/2025 11:35 AM EDT Hx of colonic polyps TISSUE EXAM Routine 05/14/2025 11:21 AM EDT Hx of colonic polyps COMPREHENSIVE METABOLIC PANEL Routine 04/30/2025 9:30 AM EDT Tremor LIPID PANEL WITH REFLEX TO DIRECT LDL Routine 10/19/2024 9:45 AM EST Hyperlipidemia, unspecified MG MAMMO DIGITAL SCREENING W SUDHAKAR BILAT Routine 10/14/2024 3:28 PM EST Encounter for screening mammogram for breast cancer HM HPV Routine 10/09/2023 HM HEPATITIS C SCREENING Routine 01/23/2013 from Last 3 Months or Most Recently Relevant to Health Maintenance Results * MR Brain wo Contrast (07/30/2025 4:22 PM EST) Anatomical Region Laterality Modality Head and Neck Magnetic Resonan ce 07/30/2025 4:48 PM EST Impressions 07/30/2025 4:55 PM EST No acute findings. Age commensurate MRI appearance of the brain. -------- FINAL REPORT -------- Dictated By: Ar Kowalski Dictated Date: 07/30/2025 16:48 ET Assigned Physician: Ar Kowalski Reviewed and Electronically Signed By: Ar Kowalski Signed Date: 07/30/2025 16:55 ET Workstation ID: [id number] Transcribed By: Self Edit Transcribed Date: 07/30/2025 16:48 ET Narrative 07/30/2025 4:55 PM EST PROCEDURE: Noncontrast MRI of the brain. 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 COMPARISON: None. TECHNIQUE: Multiplanar multisequence MRI of the brain without intravenous contrast administration. FINDINGS: BRAIN: No diffusion abnormality. No mass or extra-axial fluid collection. No hydrocephalus. The major intracranial flow voids are preserved. Age commensurate ventricles and sulci. There are scattered foci of T2 prolongation in the supratentorial white matter. These are nonspecific but likely sequela of mild chronic microvascular ischemic disease in a patient of this age. ORBITS: Normal. SINUSES/MASTOIDS: Mild mucosal thickening in the ethmoid air cells. CALVARIUM: Normal. OTHER: The visualized skull base soft tissues are normal. Procedure Note Ar Kowalski MD - 07/30/2025 PROCEDURE: Noncontrast MRI of the brain. HISTORY: Tremor, other specified disorders of adult personality andbehavior. COMPARISON: None. TECHNIQUE: Multiplanar multisequence MRI of the brain without intravenouscontrast administration. FINDINGS: BRAIN: No diffusion abnormality. No mass or extra-axial fluid collection.No hydrocephalus. The major intracranial flow voids are preserved. Agecommensurate ventricles and sulci. There are scattered foci of [id number] in the supratentorial white matter. These are nonspecificbut likely sequela of mild chronic microvascular ischemic disease in apatient of this age. ORBITS: Normal. SINUSES/MASTOIDS: Mild mucosal thickening in the ethmoid air cells. CALVARIUM: Normal. OTHER: The visualized skull base soft tissues are normal. IMPRESSION: No acute findings. Age commensurate MRI appearance of the brain. -------- FINAL REPORT -------- Dictated By: Ar Kowalski Dictated Date: 07/30/2025 16:48 ET Assigned Physician: Ar Kowalski Reviewed and Electronically Signed By: Ar Kowalski Signed Date: 07/30/2025 16:55 ET Workstation ID: [id number] Transcribed By: Self Edit Transcribed Date: 07/30/2025 16:48 ET Kasia Flood MD IMG MRI PROCEDURES Final Re sult * XR Elbow 3+ Views Left (05/21/2025 8:51 AM EDT) Anatomical Region Laterality Modality Upper Extremities, Elbow Left Radiogr aphic Imaging 05/21/2025 8:55 AM EDT Narrative 05/21/2025 8:55 AM EDT Left elbow, 3 views. History pain. There is no evidence of fractures, dislocations or abnormal soft tissue calcifications. There is no joint effusion. CONCLUSIONS: Unremarkable radiographs of the left elbow. -------- FINAL REPORT -------- Dictated By: Tiffanie Schumacher Dictated Date: 05/21/2025 08:55 ET Assigned Physician: Tiffanie Schumacher Reviewed and Electronically Signed By: Tiffanie Schumacher Signed Date: 05/21/2025 08:55 ET Workstation ID: [id number] Transcribed By: Self Edit Transcribed Date: 05/21/2025 08:55 ET Procedure Note Tiffanie Schumacher MD - 05/21/2025 Left elbow, 3 views. History pain. There is no evidence of fractures, dislocations or abnormal soft tissuecalcifications. There is no joint effusion. CONCLUSIONS: Unremarkable radiographs of the left elbow. -------- FINAL REPORT -------- Dictated By: Tiffanie Schumacher Dictated Date: 05/21/2025 08:55 ET Assigned Physician: Tiffanie Schumacher Reviewed and Electronically Signed By: Tiffanie Schumacher Signed Date: 05/21/2025 08:55 ET Workstation ID: [id number] Transcribed By: Self Edit Transcribed Date: 05/21/2025 08:55 ET Kaz Quinones NP IMG XR PROCEDURES Final Resul t * XR Shoulder 2+ Views Left (05/21/2025 8:51 AM EDT) Anatomical Region Laterality Modality Upper Extremities, Shoulder Left Radi ographic Imaging 05/21/2025 8:54 AM EDT Narrative 05/21/2025 8:55 AM EDT Left shoulder, 4 views. History pain. There is some calcification adjacent to the greater tuberosity suggestive of calcific tendinitis/bursitis. There is no fractures, dislocations or destructive lesions. CONCLUSIONS: Findings suggestive of calcific tendinitis/bursitis. -------- FINAL REPORT -------- Dictated By: Tiffanie Schumacher Dictated Date: 05/21/2025 08:54 ET Assigned Physician: Tiffanie Schumacher Reviewed and Electronically Signed By: Tiffanie Schumacher Signed Date: 05/21/2025 08:55 ET Workstation ID: [id number] Transcribed By: Self Edit Transcribed Date: 05/21/2025 08:54 ET Procedure Note Tiffanie Schumacher MD - 05/21/2025 Left shoulder, 4 views. History pain. There is some calcification adjacent to the greater tuberosity suggestiveof calcific tendinitis/bursitis. There is no fractures, dislocations ordestructive lesions. CONCLUSIONS: Findings suggestive of calcific tendinitis/bursitis. -------- FINAL REPORT -------- Dictated By: Tiffanie Schumacher Dictated Date: 05/21/2025 08:54 ET Assigned Physician: Tiffanie Schumacher Reviewed and Electronically Signed By: Tiffanie Schumacher Signed Date: 05/21/2025 08:55 ET Workstation ID: [id number] Transcribed By: Self Edit Transcribed Date: 05/21/2025 08:54 ET us Kaz Reedolo [employer] IMG XR PROCEDURES Final Resul t * COLONOSCOPY Anesthesia - [facility]; [facility] ENDOSCOPY (05/14/2025 11:35 AM EDT) Anatomical Region Laterality Modality Endoscopy 05/14/2025 11:1 3 AM EDT Impressions 05/14/2025 11:37 AM EDT - Five 4 to 10 mm polyps in the descending colon and in the transverse colon, removed with a cold snare. Resected and retrieved. - The examination was otherwise normal on direct and retroflexion views. Recommendation: - Discharge patient to home. - Await pathology results. - Repeat colonoscopy in 3 years for surveillance. Narrative 05/14/2025 11:37 AM EDT [facility] Patient Name: Sarika Erazo Procedure Date: 05/14/2025 11:13 AM Date of : 1960 Age: 64 Gender: Female Note Status: Finalized Attending MD: Ridge Richards MD, Procedure Date No Time: 05/14/2025 Procedure: Colonoscopy Indications: High risk colon cancer surveillance: Personal history of colonic polyps, Last colonoscopy: May 2020 Providers: Rdige Richards MD Referring MD: Ridge Richards MD Medicines: Monitored Anesthesia Care Complications: No immediate complications. Estimated blood loss: Minimal. Estimated Blood Loss: Estimated blood loss was minimal. Procedure: Pre-Anesthesia Assessment: - Prior to the procedure, a History and Physical was performed, and patient medications and allergies were reviewed. The patient is competent. The risks and benefits of the procedure and the sedation options and risks were discussed with the patient. All questions were answered and informed consent was obtained. Patient identification and proposed procedure were verified by the physician, the nurse, the cleaning supervisor and the lead injection mold technician in the pre-procedure area in the endoscopy suite. Mental Status Examination: alert and oriented. Airway Examination: normal oropharyngeal airway and neck mobility. Respiratory Examination: clear to auscultation. CV Examination: normal. Prophylactic Antibiotics: The patient does not require prophylactic antibiotics. Prior Anticoagulants: The patient has taken no anticoagulant or antiplatelet agents. ASA Grade Assessment: II - A patient with mild systemic disease. After reviewing the risks and benefits, the patient was deemed in satisfactory condition to undergo the procedure. The anesthesia plan was to use monitored anesthesia care (MAC). Immediately prior to administration of medications, the patient was re-assessed for adequacy to receive sedatives. The heart rate, respiratory rate, oxygen saturations, blood pressure, adequacy of pulmonary ventilation, and response to care were monitored throughout the procedure. The physical status of the patient was re-assessed after the procedure. After I obtained informed consent, the scope was passed under direct vision. Throughout the procedure, the patient's blood pressure, pulse, and oxygen saturations were monitored continuously.The Olympus Colonoscope was introduced through the anus and advanced to the cecum, identified by appendiceal orifice and ileocecal valve. The colonoscopy was performed without difficulty. The patient tolerated the procedure well. The quality of the bowel preparation was good. Findings: The perianal and digital rectal examinations were normal. Five sessile polyps were found in the descending colon and transverse colon. The polyps were 4 to 10 mm in size. These polyps were removed with a cold snare. Resection and retrieval were complete. Estimated blood loss was minimal. The exam was otherwise without abnormality on direct and retroflexion views. Internal hemorrhoids were found during retroflexion. The hemorrhoids were Grade I (internal hemorrhoids that do not prolapse) and Grade II (internal hemorrhoids that prolapse but reduce spontaneously). Procedure Code(s): --- Professional --- 31242, Colonoscopy, flexible; with removal of tumor(s), polyp(s), or other lesion(s) by snare technique Diagnosis Code(s): --- Professional --- D12.4, Benign neoplasm of descending colon D12.3, Benign neoplasm of transverse colon (hepatic flexure or splenic flexure) CPT copyright 2020 [employer]. All rights reserved. The codes documented in this report are preliminary and upon liquid loader review may be revised to meet current compliance requirements. Ridge Richards MD 05/14/2025 11:37:14 AM This report has been signed electronically.Ridge Richards MD Number of Addenda: 0 Note Initiated On: 05/14/2025 11:13 AM Scope Withdrawal Time: 0 hours 11 minutes 38 seconds Scope In: 11:19:20 AM Scope Out: 11:35:23 AM Endoscopy Department at [facility] - [address] [place] [id number] Procedure Note Ridge Richards MD - 05/14/2025 [facility] GI Patient Name: Sarika Erazo Procedure Date: 05/14/2025 11:13 AM Date of : 1960 Age: 64 Gender: Female Note Status: Finalized Attending MD: Ridge Richards MD, Procedure Date No Time: 05/14/2025 Procedure: Colonoscopy Indications: High risk colon cancer surveillance: Personalhistory of colonic polyps, Last colonoscopy: May2020 Providers: Ridge Richards MD Referring MD: Ridge Richards MD Medicines: Monitored Anesthesia Care Complications: No immediate complications. Estimated blood loss: Minimal. Estimated Blood Loss: Estimated blood loss was minimal. Procedure: Pre-Anesthesia Assessment: - Prior to the procedure, a History and Physicalwas performed, and patient medications and allergieswere reviewed. The patient is competent. The risks and benefits of the procedure and the sedation optionsand risks were discussed with the patient. Allquestions were answered and informed consent was obtained. Patient identification and proposed procedure were verified by the physician, the nurse, theanesthetist and the lead injection mold technician in the pre-procedure area in the endoscopy suite. Mental Status Examination: alertand oriented. Airway Examination: normal oropharyngeal airway and neck mobility. Respiratory Examination: clear to auscultation. CV Examination: normal. Prophylactic Antibiotics: The patient does notrequire prophylactic antibiotics. Prior Anticoagulants: The patient has taken no anticoagulant or antiplatelet agents. ASA Grade Assessment: II - A patient withmild systemic disease. After reviewing the risks and benefits, the patient was deemed in satisfactory condition to undergo the procedure. The anesthesia plan was to use monitored anesthesia care (MAC). Immediately prior to administration of medications, the patient was re-assessed for adequacy to receive sedatives. The heart rate, respiratory rate, oxygen saturations, blood pressure, adequacy of pulmonary ventilation, and response to care were monitored throughout the procedure. The physical status ofthe patient was re-assessed after the procedure. After I obtained informed consent, the scope was passed under direct vision. Throughout theprocedure, the patient's blood pressure, pulse, and oxygen saturations were monitored continuously.The Olympus Colonoscope was introduced through the anus and advanced to the cecum, identified by appendiceal orifice and ileocecal valve. The colonoscopy was performed without difficulty. The patient tolerated the procedure well. The quality of the bowel preparation was good. Findings: The perianal and digital rectal examinations were normal. Five sessile polyps were found in the descendingcolon and transverse colon. The polyps were 4 to 10 mm in size. These polyps were removed with a cold snare. Resection and retrieval were complete. Estimatedblood loss was minimal. The exam was otherwise without abnormality ondirect and retroflexion views. Internal hemorrhoids were found duringretroflexion. The hemorrhoids were Grade I (internal hemorrhoids that do not prolapse) and Grade II (internal hemorrhoids that prolapse but reducespontaneously). Procedure Code(s): --- Professional --- 21710, Colonoscopy, flexible; with removal of tumor(s), polyp(s), or other lesion(s) by snare technique Diagnosis Code(s): --- Professional --- D12.4, Benign neoplasm of descending colon D12.3, Benign neoplasm of transverse colon (hepatic flexure or splenic flexure) CPT copyright 2020 [employer]. All rights reserved. The codes documented in this report are preliminary and upon liquid loader reviewmay be revised to meet current compliance requirements. Ridge Richards MD 05/14/2025 11:37:14 AM This report has been signed electronically.Ridge Richards MD Number of Addenda: 0 Note Initiated On: 05/14/2025 11:13 AM Scope Withdrawal Time: 0 hours 11 minutes 38 seconds Scope In: 11:19:20 AM Scope Out: 11:35:23 AM Endoscopy Department at [facility] - [address] [place] [phone] IMPRESSION: - Five 4 to 10 mm polyps in the descending colon and in the transverse colon, removed with a cold snare. Resected and retrieved. - The examination was otherwise normal on directand retroflexion views. Recommendation: - Discharge patient to home. - Await pathology results. - Repeat colonoscopy in 3 years for surveillance. us Ridge Richards MD GI~PROCEDURE ORDERABLES Fin al Result * Tissue exam (05/14/2025 11:21 AM EDT) Final Diagnosis A. Large Intestine, Left/Descending Colon, polyp x1: - Tubular adenoma. B. Large Intestine, Transverse Colon, polyp x 4: - Tubular adenoma(s). 05/17/2025 11:26 AM EDT [facility] at 1126 EDT Gross Description A. Large Intestine, Left/Descending Colon, polyp x 1: Labeled polyp x 1 desc colon . Received in formalin are two soft, barajas polypoid tissues measuring approximately 0.4 cm in greatest diameter, which are wrapped in paper and submitted in toto in one cassette, two pieces, multiple levels. B. Large Intestine, Transverse Colon, polyp x 4: Labeled polyp x 4 trans colon . Received in green-stained formalin is a 1.5 x 1.0 x 0.2 cm aggregate of soft to friable, barajas-pink to red fragmented portions of polypoid tissue which are wrapped in paper and submitted in toto in one cassette, multiple pieces, multiple levels. TS 05/17/2025 11:26 AM EDT [facility] Disclaimer Unless otherwise specified, all tissue is 10% NB formalin fixed and paraffin embedded. 05/17/2025 11:26 AM EDT [facility] Tissue Descending colon structure / Unknown 05/14/2025 11:21 AM EDT 05/14/2025 1:13 PM EDT Tissue specimen (specimen) Transverse colon structure / Unknown 05/14/2025 11:25 AM EDT 05/14/2025 1:13 PM EDT us Ridge Richards MD LAB PATHOLOGY ORDERABLES Fi nal Result [facility] [address] [place] [address], * Comprehensive metabolic panel (04/30/2025 9:30 AM EDT) Sodium 139 133 - 145 mmol/L LAB CHEMISTRY METHOD 04/30/2025 1:58 PM [facility] Potassium 3.6 3.5 - 5.5 mmol/L LAB CHEMISTRY METHOD 04/30/2025 1:58 PM [facility] Chloride 103 96 - 110 mmol/L LAB CHEMISTRY METHOD 04/30/2025 1:58 PM [facility] CO2 28 21 - 32 mmol/L LAB CHEMISTRY METHOD 04/30/2025 1:58 PM [facility] Anion Gap 8 3 - 11 LAB CHEMISTRY METHOD 04/30/2025 1:58 PM [facility] Glucose 88 70 - 100 mg/dL LAB CHEMISTRY METHOD 04/30/2025 1:58 PM [facility] BUN 14 5 - 25 mg/dL LAB CHEMISTRY METHOD 04/30/2025 1:58 PM [facility] Creatinine 0.90 0.50 - 1.10 mg/dL LAB CHEMISTRY METHOD 04/30/2025 1:58 PM [facility] eGFR 72 >=60 mL/min/1. 73m2 LAB CHEMISTRY METHOD 04/30/2025 1:58 PM [facility] Comment:Calculation based on the Chronic Kidney Disease Epidemiology Collaboration (CKD-EPI) equation refit without adjustment for race. BUN/Creatinine Ratio 15.6 LAB CHEMISTRY METHOD 04/30/2025 1:58 PM [facility] Calcium 9.3 8.5 - 10.5 mg/dL LAB CHEMISTRY METHOD 04/30/2025 1:58 PM [facility] AST (SGOT) 26 10 - 42 unit/L LAB CHEMISTRY METHOD 04/30/2025 1:58 PM [facility] ALT (SGPT) 23 10 - 60 unit/L LAB CHEMISTRY METHOD 04/30/2025 1:58 PM [facility] Alkaline Phosphatase 96 42 - 121 unit/L LAB CHEMISTRY METHOD 04/30/2025 1:58 PM EDT [facility] Total Protein 7.0 6.0 - 8.0 g/dL LAB CHEMISTRY METHOD 04/30/2025 1:58 PM EDT [facility] Albumin 4.0 3.2 - 5.0 g/dL LAB CHEMISTRY METHOD 04/30/2025 1:58 PM EDT [facility] Total Bilirubin 0.7 0.0 - 1.4 mg/dL LAB CHEMISTRY METHOD 04/30/2025 1:58 PM EDT [facility] Blood Venous blood specimen / Unknown Venipuncture / Unknown 04/30/2025 9:30 AM EDT 04/30/2025 9:30 AM EDT Giancarlo Javier MD LAB BLOOD ORDERABLES Tegan l Result [facility] [address] [place] [address], [place] [phone] * (ABNORMAL) Lipid panel with reflex to direct LDL (10/19/2024 9:45 AM EST) Cholesterol 211(H) 0 - 200 mg/dL LAB CHEMISTRY METHOD 10/19/2024 7:52 PM [facility] Triglycerides 56 0 - 150 mg/dL LAB CHEMISTRY METHOD 10/19/2024 7:52 PM [facility] HDL 120 >=40 mg/dL LAB CHEMISTRY METHOD 10/19/2024 7:52 PM [facility] LDL Calculated 80 0 - 100 mg/dL LAB CHEMISTRY METHOD 10/19/2024 7:52 PM [facility] VLDL Cholesterol Hayder 11.2 mg/dL LAB CHEMISTRY METHOD 10/19/2024 7:52 PM [facility] Non HDL Chol. (LDL+VLDL) 91 <145 mg/dL LAB CHEMISTRY METHOD 10/19/2024 7:52 PM EST [facility] Chol/HDL Ratio 1.8 0.0 - 4.4 LAB CHEMISTRY METHOD 10/19/2024 7:52 PM EST [facility] Blood Venous blood specimen / Unknown Venipuncture / Unknown 10/19/2024 9:45 AM EST 10/19/2024 9:45 AM EST us Giancarlo Javier MD LAB BLOOD ORDERABLES Tegan jorgensen Result [facility] [address] [place] [address], [place] [phone] * MG Mammo Digital Screening w Sudhakar bilat (10/14/2024 3:28 PM EST) Anatomical Region Laterality Modality Breast Bilateral Mammography 10/15/2024 9:13 AM EST Impressions 10/15/2024 9:16 AM EST No mammographic evidence of malignancy. BREAST DENSITY: C - The breasts are heterogeneously dense which may obscure small masses. BI-RADS CATEGORY: 1 - NEGATIVE RECOMMENDATION: Screening bilateral mammogram is recommended in 1 year. MAMMO LOCATION: [facility], [address] [place] [address], [id number], . -------- FINAL REPORT -------- Dictated By: Laura Rodriguez Dictated Date: 10/15/2024 09:13 ET Assigned Physician: Laura Rodriguez Reviewed and Electronically Signed By: Laura Rodrgiuez Signed Date: 10/15/2024 09:16 ET Workstation ID: [id number] Transcribed By: Self Edit Transcribed Date: 10/15/2024 09:13 ET Narrative 10/15/2024 9:16 AM EST EXAM: Screening Mammogram CLINICAL: 64 years old, Female, routine annual exam. History of bilateral benign excisional biopsies. COMPARISON: 06/14/2023 and as far back as 09/01/2020 TECHNIQUE: Bilateral MLO and CC views were obtained digitally with 3-D mammogram (digital breast tomosynthesis). Computer-aided detection was utilized in evaluation of this exam (CAD). FINDINGS: No new suspicious mass, architectural distortion, or suspicious calcifications. Procedure Note Laura Rodriguez MD - 10/15/2024 EXAM: Screening Mammogram CLINICAL: 64 years old, Female, routine annual exam. History of bilateralbenign excisional biopsies. COMPARISON: 06/14/2023 and as far back as 09/01/2020 TECHNIQUE: Bilateral MLO and CC views were obtained digitally with 3-Dmammogram (digital breast tomosynthesis). Computer-aided detection wasutilized in evaluation of this exam (CAD). FINDINGS: No new suspicious mass, architectural distortion, or suspiciouscalcifications. IMPRESSION: No mammographic evidence of malignancy. BREAST DENSITY: C - The breasts are heterogeneously dense which mayobscure small masses. BI-RADS CATEGORY: 1 - NEGATIVE RECOMMENDATION: Screening bilateral mammogram is recommended in 1 year. MAMMO LOCATION: [facility], [address] [place] [address], [id number], . -------- FINAL REPORT -------- Dictated By: Laura Rodriguez Dictated Date: 10/15/2024 09:13 ET Assigned Physician: Laura Rodriguez Reviewed and Electronically Signed By: Laura Rodriguez Signed Date: 10/15/2024 09:16 ET Workstation ID: [id number] Transcribed By: Self Edit Transcribed Date: 10/15/2024 09:13 ET Giancarlo Javier MD IMG BI PROCEDURES Final R esult * Cervical Cancer Screening: HPV (10/09/2023) Cervical Cancer Screening: HPV Positive, Abstracted Historical Provider HEALTH MAINTENANCE Final Result * Hepatitis C Screening (01/23/2013) Hepatitis C Screening Abstracted Historical Provider HEALTH MAINTENANCE Final Result from Last 3 Months or Most Recently Relevant to Health Maintenance Insurance [employer] Care Teams Public Bath Attendant Relationship Specialty Start Date End Date Tita Hernandez MD [address] [place], [place] [id number] [facility] [place] PCP - General Internal Medicine 06/02/25
== END 2025-08-09 16:02 | disposition home or self-care (01) ==
LOC: HO.HSM 12:43
PROVIDERS: PCP Internal Medicine; Visit Provider Psychiatry & Neurology Neurology
DX: R25.1 Tremor, unspecified (principal); F68.8 Other specified disorders of adult personality and behavior
CPT/HCPCS: 99213